=== PATIENT | female | born 1985 | race Caucasian/White ===

== ENCOUNTER 2017-02-28 00:33 | Inpatient (IN) | payer OTHER ==
[2017-02-28] MEDS ORDERED: OBEPIDURAL* 250 ML ONE (01:29)
[2017-02-28 02:01] LABS: Hematocrit 41 % (35-47); Hemoglobin 13.2 g/dl (12.0-16.0); Mean Corpuscular HGB Conc 33 g/dl (31-36); Mean Corpuscular Hemoglobin 30 pg (27-31); Mean Corpuscular Volume 92 fL (80-97); Mean Platelet Volume 9 um3 (7.4-10.4); Red Blood Count 4.41 10^6/ul (4.0-5.4); Red Cell Distribution Width 13 % (10.5-15); White Blood Count 12.3 10^3/ul (3.5-10.8)
[2017-02-28] MEDS ORDERED: Famotidine TAB* 20 MG PO PRN (02:53)
[2017-02-28] MEDS ORDERED: Sodium Citrate/Citric Acid* 15 ML UDC PO PRN (02:53)
[2017-02-28] MEDS ORDERED: Phenylephrine IV* 40 MCG/ML 10 ML SYRINGE IV PUSH PRN (02:53)
[2017-02-28] MEDS ORDERED: Levothyroxine TAB* 75 MCG TAB PO SCH (06:00)
[2017-02-28] MEDS ORDERED: Oxytocin in LR* 0 UNITS/0 ML BAG IVPB ONE (10:48)
[2017-02-28] MEDS ORDERED: Dibucaine 1% 28.35 GM TUBE PR PRN (12:39)
[2017-02-28] MEDS ORDERED: Glycerin ADULT SUPP PR PRN (12:39)
[2017-02-28] MEDS ORDERED: Acetaminophen TAB* 325 MG PO PRN (12:39)
[2017-02-28] MEDS ORDERED: oxyCODONE/Acetamin 5/325 MG* TAB PO PRN (12:39)
[2017-02-28] MEDS ORDERED: Witch Hazel PAD* JAR TOPICAL PRN (12:39)
[2017-02-28] MEDS: Docusate CAP* 100 MG PO SCH ×2 (14:13→21:14)
[2017-02-28] MEDS: Ibuprofen TAB* 600 MG PO PRN ×2 (14:13→19:51)
[2017-02-28] MEDS: Levothyroxine TAB* 75 MCG TAB PO SCH (21:14)
[2017-03-01] MEDS: Ibuprofen TAB* 600 MG PO PRN ×3 (03:37→20:09)
[2017-03-01 06:35] LABS: Hematocrit 26 % (35-47); Hemoglobin 8.6 g/dl (12.0-16.0); Mean Corpuscular HGB Conc 33 g/dl (31-36); Mean Corpuscular Hemoglobin 31 pg (27-31); Mean Corpuscular Volume 93 fL (80-97); Mean Platelet Volume 9 um3 (7.4-10.4); Red Blood Count 2.82 10^6/ul (4.0-5.4); Red Cell Distribution Width 14 % (10.5-15); White Blood Count 20.6 10^3/ul (3.5-10.8)
[2017-03-01] MEDS: OBEPIDURAL* 250 ML EPIDURAL SCH ×2 (08:07→08:08)
[2017-03-01] MEDS: Docusate CAP* 100 MG PO SCH ×3 (08:30→20:08)
[2017-03-01] MEDS: Ferrous Gluconate TAB* 324 MG TAB PO SCH ×2 (08:57→20:09)
[2017-03-01] MEDS: Levothyroxine TAB* 75 MCG TAB PO SCH (20:09)
[2017-03-02 07:57] VITALS: BP 110/56
[2017-03-02] MEDS: Ferrous Gluconate TAB* 324 MG TAB PO SCH (09:15)
[2017-03-02] MEDS: Docusate CAP* 100 MG PO SCH (09:19)
[2017-03-02] MEDS: Ibuprofen TAB* 600 MG PO PRN (09:36)
--- NOTE | 2017-03-02 10:39 | PTEDU ---
Patient Name: ERNESTO WEBSTER ERNESTO WEBSTER selected video: Never Ever Shake a Baby to view on 03/02/2017 at 10:38:50 AM [id number]
--- NOTE | 2017-03-02 10:48 | PTEDU ---
Patient Name: ERNESTO WEBSTER ERNESTO WEBSTER selected video: Follow Me Mum: [employer] [facility] to view on 03/02/2017 at 10:47:27 AM from [email or web address]
--- NOTE | 2017-03-02 11:10 | PTEDU ---
Patient Name: ERNESTO WEBSTER ERNESTO WEBSTER selected video: Follow Me Mum: [employer] [facility] to view on 03/02/2017 at 11:09:59 AM from [email or web address]
== END 2017-03-02 14:29 | disposition home or self-care (01) | DRG 775 ==
LOC: MCHOBOUT 00:33 → MCHOB 01:02
PROVIDERS: ADMIT Midwife; ATTEND Midwife
PROC: 10E0XZZ Delivery of Products of Conception, External Approach (ICD-10-PCS; principal; 2017-02-28)
PROC: 4A1HX4Z Monitoring of Products of Conception, Cardiac Electrical Activity, External Approach (ICD-10-PCS; 2017-02-28)
PROC: 0KQM0ZZ Repair Perineum Muscle, Open Approach (ICD-10-PCS; 2017-02-28)
DX: O99.284 Endocrine, nutritional and metabolic diseases complicating childbirth (principal); E03.9 Hypothyroidism, unspecified; O99.824 Streptococcus B carrier state complicating childbirth; Z3A.39 39 weeks gestation of pregnancy; Z37.0 Single live birth; O76 Abnormality in fetal heart rate and rhythm complicating labor and delivery; O70.1 Second degree perineal laceration during delivery; O69.89X0 Labor and delivery complicated by other cord complications, not applicable or unspecified
CPT/HCPCS: 36415; 85025; 86850; 86900; 86901; A9270-GY